=== PATIENT | female | born 1980 | race Two or more races ===

== ENCOUNTER 2024-10-06 23:21 | Emergency (ER) | payer OTHER ==
[~2024-10-06] VITALS: Ht 170.2 cm; Wt 90.9 kg
[2024-10-06 23:25] VITALS: BP 170/105; PULSE 108; RESP 22; TEMP 98.1; O2SAT 99
== END 2024-10-07 01:45 | disposition left against medical advice (07) ==
LOC: EMS 23:21
DX: F41.9 Anxiety disorder, unspecified (principal); Z53.21 Procedure and treatment not carried out due to patient leaving prior to being seen by health care provider